=== PATIENT | female | born 1960 | race Caucasian/White ===

== ENCOUNTER → 2023-10-07 09:28 | Outpatient (REF) | payer OTHER, SELFPAY ==
[2023-10-07 10:04] VITALS: BP 127/62; BP_SYST 67
[2023-10-07 11:35] VITALS: BP 156/61; BP_SYST 74
== END ==
LOC: RADI 09:28
PROVIDERS: ATTENDING PHYSICIAN Family Medicine
DX: C83.01 Small cell B-cell lymphoma, lymph nodes of head, face, and neck (principal)
CPT/HCPCS: 88305; 38505; 76942; 88333; 88341; 88342

== ENCOUNTER → 2023-11-12 12:33 | Outpatient (REF) | payer OTHER, SELFPAY | LOC: RAD 12:33 | PROVIDERS: ATTENDING PHYSICIAN Internal Medicine Hematology & Oncology; FAMILY PHYSICIAN Family Medicine; REFERRING PHYSICIAN Nurse Practitioner Family | DX: G35 Multiple sclerosis (principal); C85.90 Non-Hodgkin lymphoma, unspecified, unspecified site; R59.0 Localized enlarged lymph nodes; C85.10 Unspecified B-cell lymphoma, unspecified site; D80.1 Nonfamilial hypogammaglobulinemia | CPT/HCPCS: 71260; 74177; Q9967 ==

== ENCOUNTER → 2024-01-04 06:32 | Day surgery (SDC) | payer OTHER, SELFPAY | LOC: GI 06:32 | PROVIDERS: ATTENDING PHYSICIAN Internal Medicine; FAMILY PHYSICIAN Family Medicine | DX: Z12.11 Encounter for screening for malignant neoplasm of colon (principal); K57.30 Diverticulosis of large intestine without perforation or abscess without bleeding; K64.9 Unspecified hemorrhoids | CPT/HCPCS: G0121 ==

== ENCOUNTER → 2024-05-03 10:34 | Outpatient (REF) | payer OTHER, SELFPAY | LOC: RAD 10:34 | PROVIDERS: FAMILY PHYSICIAN Family Medicine | DX: C91.10 Chronic lymphocytic leukemia of B-cell type not having achieved remission (principal) | CPT/HCPCS: 71260; 74177; Q9967 ==

== ENCOUNTER → 2024-05-17 14:22 | Outpatient (REF) | payer OTHER, SELFPAY | LOC: WDC 14:22 | PROVIDERS: ATTENDING PHYSICIAN Surgery; FAMILY PHYSICIAN Family Medicine | DX: N64.4 Mastodynia (principal) | CPT/HCPCS: 76642 ==

== ENCOUNTER → 2024-07-28 11:19 | Outpatient (REF) | payer OTHER, SELFPAY | LOC: MRI 3T 11:19 | PROVIDERS: ATTENDING PHYSICIAN Surgery; FAMILY PHYSICIAN Family Medicine | DX: Z90.13 Acquired absence of bilateral breasts and nipples (principal); Z98.82 Breast implant status | CPT/HCPCS: 77049; A9585 ==

== ENCOUNTER → 2024-08-24 11:14 | Outpatient (REF) | payer OTHER, SELFPAY | LOC: RCS 11:14 | PROVIDERS: ATTENDING PHYSICIAN Internal Medicine Cardiovascular Disease; FAMILY PHYSICIAN Family Medicine | DX: R06.00 Dyspnea, unspecified (principal) | CPT/HCPCS: 93306 ==

== ENCOUNTER → 2024-11-08 10:45 | Outpatient (REF) | payer OTHER, SELFPAY | LOC: RAD 10:45 | PROVIDERS: ATTENDING PHYSICIAN Student in an Organized Health Care Education/Training Program; FAMILY PHYSICIAN Family Medicine | DX: C91.00 Acute lymphoblastic leukemia not having achieved remission (principal) | CPT/HCPCS: 71260; 74177; Q9967 ==